=== PATIENT | female | born 2000 | race African-American/Black ===

== ENCOUNTER 2022-08-28 12:10 | Emergency (ER) | payer OTHER ==
[2022-08-28 13:23] VITALS: BP 102/60; RESP 22; TEMP 98.2; BMI 29.0
[2022-08-28] MEDS ORDERED: SODIUM CHLORIDE 0.9% 500 ML INFUS.BAG IV ONE (13:38)
[2022-08-28] MEDS ORDERED: ONDANSETRON 4 MG/2 ML VIAL IVPUSH ONE (13:38)
[2022-08-28] MEDS ORDERED: ACETAMINOPHEN 1000 MG/100 ML BAG IVPB ONE (13:38)
[2022-08-28] MEDS ORDERED: FAMOTIDINE 20 MG/50 ML IVPB 20 MG/50 ML MG IVPB ONE (13:39)
[2022-08-28] MEDS ORDERED: OFIRMEV IVPB ONE (13:49)
[2022-08-28] MEDS ORDERED: [UNRECOGNIZED DRUG - OTHER] IVPB ONE (13:49)
[2022-08-28] MEDS ORDERED: ONDANSETRON 4 MG/2 ML VIAL ONE (13:49)
[2022-08-28] MEDS ORDERED: FAMOTIDINE 20 MG IVPB ONE (13:49)
[2022-08-28] MEDS ORDERED: [UNRECOGNIZED DRUG - OTHER] IVPB ONE (13:49)
[2022-08-28 14:18] LABS: BASO % 0.2 % (0-2.0); EOS % 0.5 % (0-4.5); HEMATOCRIT 40.7 % (32.4-45.2); HEMOGLOBIN 13.5 GM/dL (10.7-15.3); LYMPH % 3.6 % (8-40); MCH 28.8 pg (25.7-33.7); MCHC 33.1 g/dl (32.0-36.0); MEAN CELL VOLUME 86.9 fl (80-96); MEAN PLT VOLUME 7.3 fl (7.5-11.1); MONO % 5.3 % (3.8-10.2); NEUT % 90.4 % (42.8-82.8); PLATELET COUNT 358 10^3/uL (134-434); RBC 4.69 M/mm3 (3.60-5.2); RDW 12.6 % (11.6-15.6); WHITE BLOOD COUNT 15.2 K/mm3 (4.0-10.0)
[2022-08-28 14:32] LABS: ALBUMIN 4.2 g/dl (3.4-5.0); BLOOD UREA NITROGEN 12.9 mg/dL (7-18); CALCIUM 9.8 mg/dL (8.5-10.1)
[2022-08-28 14:35] LABS: CREATININE 0.8 mg/dL (0.55-1.3)
[2022-08-28 14:37] LABS: BILIRUBIN,TOTAL 0.7 mg/dL (0.2-1)
[2022-08-28 16:35] VITALS: PULSE 89
== END 2022-08-28 16:36 | disposition home or self-care (01) ==
LOC: JER 12:10
PROC: 3E033GC Introduction of Other Therapeutic Substance into Peripheral Vein, Percutaneous Approach (ICD-10-PCS; principal; 2022-08-28)
PROC: 3E033NZ Introduction of Analgesics, Hypnotics, Sedatives into Peripheral Vein, Percutaneous Approach (ICD-10-PCS; 2022-08-28)
PROC: 3E033GC Introduction of Other Therapeutic Substance into Peripheral Vein, Percutaneous Approach (ICD-10-PCS; 2022-08-28)
DX: R11.2 Nausea with vomiting, unspecified (principal); Z20.822 Contact with and (suspected) exposure to COVID-19
CPT/HCPCS: 0241U-QW; 36415; 80053; 83690; 84703; 85025; 99284-25

== ENCOUNTER 2022-11-22 09:45 | Emergency (ER) | payer OTHER ==
[2022-11-22 09:59] VITALS: BP 110/57; PULSE 63; RESP 18; TEMP 98.7; BMI 23.7
[2022-11-22] MEDS ORDERED: DEXAMETHASONE LIQUID 0.5 MG/5 ML PO ONE (10:18)
[2022-11-22] MEDS ORDERED: ALBUTEROL SO4 2.5/IPRATROPIUM 0.5 INH SOL 3 ML VIAL.NEB. NEB ONE ×2 (10:18→10:20)
[2022-11-22] MEDS ORDERED: DEXAMETHASONE SOD PHOSPHATE 10 MG/1 ML VIAL ONE (10:20)
[2022-11-22 11:05] LABS: THROAT:GRP A STREP NOT DETECTED (NOTDETECTED)
== END 2022-11-22 11:37 | disposition home or self-care (01) ==
LOC: JERFT 09:45 → JER 09:45 → JERFT 11:37
PROC: 3E0F7GC Introduction of Other Therapeutic Substance into Respiratory Tract, Via Natural or Artificial Opening (ICD-10-PCS; principal; 2022-11-22)
DX: R07.0 Pain in throat (principal); R05.9 Cough, unspecified; R09.89 Other specified symptoms and signs involving the circulatory and respiratory systems; R13.10 Dysphagia, unspecified; J06.9 Acute upper respiratory infection, unspecified; Z20.822 Contact with and (suspected) exposure to COVID-19
CPT/HCPCS: 0241U-QW; 71046-TC-FY; 87651; 93005; 93010; 99285-25